=== PATIENT | female | born 1990 | race Caucasian/White ===

== ENCOUNTER → 2021-04-30 18:52 | Observation (INO) ==
[2021-04-30 18:14] LABS: Bilirubin,Urine Negative (Negative); Blood,Urine Negative (Negative); Calcium Oxalate Crystals,Urine Present per hpf; Clarity,Urine Turbid (Clear); Color,Urine Yellow (Yellow); Glucose,Urine (UA) Normal (Normal); Ketones,Urine 60 mg/dL (Negative); Leukocyte Esterase,Urine Small (Negative); Mucus,Urine Few per lpf (None-Few); Nitrite,Urine Negative (Negative); Protein,Urine 30 mg/dL (Neg-Trace); Specific Gravity,Urine 1.028 (1.010-1.025); Squamous Epithelial Cell,Urine Moderate per hpf (None-Few); WBC,Urine 0-3 per hpf (0-3)
[2021-04-30 19:30] LABS: Candida DNA DETECTED (Not Detect); Gardnerella DNA Not Detected (Not Detect); Trichomonas DNA Not Detected (Not Detect)
== END | disposition home or self-care (01) ==
LOC: 1NENULAB
PROVIDERS: ADMIT Advanced Practice Midwife; ATTEND Advanced Practice Midwife

== ENCOUNTER → 2021-05-27 20:40 | Observation (INO) ==
[2021-05-27 19:21] LABS: Bacteria,Urine Few per hpf (None-Few); Bilirubin,Urine Negative (Negative); Blood,Urine Negative (Negative); Clarity,Urine Turbid (Clear); Color,Urine Yellow (Yellow); Glucose,Urine (UA) Normal (Normal); Ketones,Urine 40 mg/dL (Negative); Leukocyte Esterase,Urine Moderate (Negative); Mucus,Urine Few per lpf (None-Few); Nitrite,Urine Negative (Negative); Protein,Urine Trace mg/dL (Neg-Trace); RBC,Urine 0-3 per hpf (0-3); Specific Gravity,Urine 1.028 (1.010-1.025); Squamous Epithelial Cell,Urine Few per hpf (None-Few); Urobilinogen,Urine Normal (Normal); WBC,Urine 0-3 per hpf (0-3)
[2021-05-27 20:49] LABS: Candida DNA Not Detected (Not Detect); Gardnerella DNA DETECTED (Not Detect); Trichomonas DNA Not Detected (Not Detect)
== END | disposition home or self-care (01) ==
LOC: 1NENULAB
PROVIDERS: ADMIT Advanced Practice Midwife; ATTEND Advanced Practice Midwife

== ENCOUNTER 2021-06-19 06:33 | Inpatient (IN) ==
[2021-06-19] MEDS ORDERED: Metoclopramide 10 MG/2 ML VIAL IVP PRN (06:44)
[2021-06-19] MEDS ORDERED: Famotidine 20 MG/2 ML VIAL IVP PRN (06:44)
[2021-06-19] MEDS ORDERED: *HR* Nalbuphine 10 MG/ML AMPUL IV PRN (06:44)
[2021-06-19] MEDS ORDERED: Ondansetron 4 MG/2 ML VIAL IVP PRN (06:44)
[2021-06-19] MEDS ORDERED: Azithromycin 500 MG in 0.9 % Sodium Chloride 250 ML IVPB PRN (06:44)
[2021-06-19] MEDS ORDERED: Naloxone 0.4 MG/ML INJ IVP PRN (06:44)
[2021-06-19] MEDS ORDERED: Oxytocin 30 UNIT/503 ML BAG IVC SCH ×2 (06:45→14:15)
[2021-06-19] MEDS ORDERED: D5% in 0.45% NACL 1,000 ML IVC SCH (07:00)
[2021-06-19 07:41] LABS: Influenza A PCR Negative (Negative); Influenza B PCR Negative (Negative); Resp. Syncytial Virus PCR Negative (Negative)
[2021-06-19 07:46] LABS: SARS-CoV-2 by PCR (In House) Negative (Negative)
[2021-06-19 08:33] LABS: Basophils % 0.3 %; Eosinophils # 0.6 K/mcL (0.0-0.6); Eosinophils % 5.1 %; Hematocrit 40.1 % (35.3-44.9); Hemoglobin 13.6 g/dL (11.5-15.4); Immature Granulocytes % 0.6 % (0-4); Lymphocytes # 2.7 K/mcL (0.6-4.6); Lymphocytes % 22.3 %; Mean Corpuscular HGB Conc 33.9 g/dL (31.6-35.5); Mean Corpuscular Hemoglobin 31.7 pg (28.0-33.3); Mean Corpuscular Volume 93.5 fL (83.0-100.0); Mean Platelet Volume 11.2 fL (9.4-12.4); Monocytes # 0.6 K/mcL (0.0-1.3); Monocytes % 5.4 %; Neutrophils # 7.9 K/mcL (1.6-8.9); Platelet Count 328 K/mcL (140-400); Red Blood Count 4.29 M/mcL (3.82-4.97); Red Cell Distribution Width 13.6 % (11.5-14.5); Segmented Neutrophils % 66.3 %
[2021-06-19] MEDS: Ringers Solution, Lactated 1,000 ML IVC SCH ×2 (08:57→21:40)
[2021-06-19] MEDS ORDERED: Metoclopramide 10 MG/2 ML VIAL IVP ONE (09:11)
[2021-06-19] MEDS ORDERED: CeFAZolin Syr 3,000MG/30 ML 3,000 MG/30 ML SYRINGE IVPB ONE ×2 (09:11→14:00)
[2021-06-19] MEDS ORDERED: Famotidine 20 MG/2 ML VIAL IVP ONE ×2 (09:11→14:00)
[2021-06-19] MEDS ORDERED: *HR* Dextrose 50 % in Water (Syg) 50 ML SYRINGE IVP PRN (09:14)
[2021-06-19] MEDS ORDERED: Ringers Solution, Lactated 1,000 ML IVC SCH (09:15)
[2021-06-19 09:59] LABS: Amphetamine Screen,Urine Negative ng/mL (Cutoff=1000); Barbiturate Screen,Urine Negative ng/mL (Cutoff=200); Benzodiazepines Screen,Urine Negative ng/mL (Cutoff=200); Cannabinoid Screen,Urine Negative ng/mL (Cutoff = 50); Cocaine Screen,Urine Negative ng/mL (Cutoff= 300); Opiate Screen,Urine Negative ng/mL (Cutoff=300); Phencyclidine Screen,Urine Negative ng/mL (Cutoff=25)
[2021-06-19] MEDS ORDERED: EPHEDrine 50 MG/ML VIAL IVP PRN (15:27)
[2021-06-19] MEDS ORDERED: Epidural Premix (fent/bupiv) 110 ML EP SCH (15:30)
[2021-06-19] MEDS ORDERED: *HR* FentaNYL (PF) 100 MCG/2 ML VIAL ONE (20:10)
[2021-06-19] MEDS ORDERED: Ropivacaine/PF 0.2% 20 ML VIAL ONE (20:10)
[2021-06-20] MEDS ORDERED: CeFAZolin Syr 3,000MG/30 ML 3,000 MG/30 ML SYRINGE IVPB ONE (02:49)
[2021-06-20] MEDS ORDERED: Metoclopramide 10 MG/2 ML VIAL IVP ONE (02:49)
[2021-06-20] MEDS ORDERED: Azithromycin 500 MG in 0.9 % Sodium Chloride 250 ML IVPB PRN (02:49)
[2021-06-20] MEDS ORDERED: Famotidine 20 MG/2 ML VIAL IVP ONE ×2 (02:49→02:52)
[2021-06-20] MEDS ORDERED: Ringers Solution, Lactated 1,000 ML IVC SCH ×2 (03:00→08:23)
[2021-06-20] MEDS ORDERED: Lidocaine/EPI 1:200k 2% PF 20 ML VIAL ONE (03:02)
[2021-06-20] MEDS ORDERED: Acetaminophen IV 1,000 MG/100 ML BAG IVPB ONE (03:02)
[2021-06-20] MEDS ORDERED: Ketorolac 30 MG/ML VIAL ONE (03:04)
[2021-06-20] MEDS ORDERED: Ondansetron 4 MG/2 ML VIAL ONE (03:05)
[2021-06-20] MEDS ORDERED: *HR* Morphine Sulfate/PF 10 MG/10 ML AMPUL ONE (04:30)
[2021-06-20] MEDS ORDERED: Promethazine 6.25 MG in Water for inj. (sterile) 20 ML IVPB PRN (05:27)
[2021-06-20] MEDS ORDERED: *HR* FentaNYL (PF) 100 MCG/2 ML VIAL IVP PRN (05:27)
[2021-06-20] MEDS ORDERED: *HR* Metformin 500 MG TABLET PO SCH (08:00)
[2021-06-20] MEDS ORDERED: Ondansetron 4 MG/2 ML VIAL IVP PRN (08:23)
[2021-06-20] MEDS ORDERED: Metoclopramide 10 MG/2 ML VIAL IVP PRN (08:23)
[2021-06-20] MEDS ORDERED: Naloxone 0.4 MG/ML INJ IVP PRN (08:23)
[2021-06-20] MEDS ORDERED: Simethicone 80 MG TAB.CHEW PO PRN (08:23)
[2021-06-20] MEDS ORDERED: lamoTRIgine 100 MG TABLET PO SCH ×2 (08:23→21:00)
[2021-06-20] MEDS ORDERED: *HR* Nalbuphine 10 MG/ML AMPUL IV PRN (09:58)
[2021-06-20] MEDS: Acetaminophen 325 MG TABLET PO SCH ×2 (10:29→17:26)
[2021-06-20] MEDS: Ibuprofen 600 MG TABLET PO SCH ×2 (10:29→17:26)
[2021-06-20] MEDS: Prenatal Vit/FA 1 EACH TABLET PO SCH (10:29)
[2021-06-20] MEDS: *HR* OxyCODONE Immed Rel 5 MG TABLET PO PRN (19:07)
[2021-06-20] MEDS: *HR* Enoxaparin 60 MG/0.6 ML SYRINGE SQ SCH (20:44)
[2021-06-20] MEDS: lamoTRIgine 100 MG TABLET PO SCH (20:44)
[2021-06-21] MEDS: Acetaminophen 325 MG TABLET PO SCH ×4 (00:14→22:21)
[2021-06-21] MEDS: Ibuprofen 600 MG TABLET PO SCH ×4 (00:14→22:12)
[2021-06-21 04:27] LABS: Basophils % 0.3 %; Eosinophils # 0.2 K/mcL (0.0-0.6); Eosinophils % 1.9 %; Hematocrit 34.5 % (35.3-44.9); Immature Granulocytes % 0.5 % (0-4); Lymphocytes # 2.1 K/mcL (0.6-4.6); Lymphocytes % 17.5 %; Mean Corpuscular HGB Conc 34.2 g/dL (31.6-35.5); Mean Corpuscular Hemoglobin 32.3 pg (28.0-33.3); Mean Corpuscular Volume 94.5 fL (83.0-100.0); Mean Platelet Volume 10.4 fL (9.4-12.4); Monocytes # 0.6 K/mcL (0.0-1.3); Monocytes % 5.2 %; Platelet Count 249 K/mcL (140-400); Red Blood Count 3.65 M/mcL (3.82-4.97); Red Cell Distribution Width 13.9 % (11.5-14.5); Segmented Neutrophils % 74.6 %
[2021-06-21 04:28] LABS: Hemoglobin 11.8 g/dL (11.5-15.4)
[2021-06-21] MEDS: *HR* Enoxaparin 60 MG/0.6 ML SYRINGE SQ SCH ×2 (07:45→22:13)
[2021-06-21] MEDS: *HR* Metformin 500 MG TABLET PO SCH (07:45)
[2021-06-21] MEDS: Prenatal Vit/FA 1 EACH TABLET PO SCH (07:45)
[2021-06-21] MEDS: *HR* OxyCODONE Immed Rel 5 MG TABLET PO PRN ×2 (10:02→15:23)
[2021-06-21] MEDS: lamoTRIgine 100 MG TABLET PO SCH (22:13)
[2021-06-22] MEDS: *HR* OxyCODONE Immed Rel 5 MG TABLET PO PRN (03:32)
[2021-06-22] MEDS: *HR* Enoxaparin 60 MG/0.6 ML SYRINGE SQ SCH ×2 (07:56→20:04)
[2021-06-22] MEDS: Ibuprofen 600 MG TABLET PO SCH ×2 (07:56→20:03)
[2021-06-22] MEDS: Acetaminophen 325 MG TABLET PO SCH ×2 (07:57→20:03)
[2021-06-22] MEDS: *HR* Metformin 500 MG TABLET PO SCH (07:57)
[2021-06-22] MEDS: Prenatal Vit/FA 1 EACH TABLET PO SCH (07:57)
[2021-06-22] MEDS: lamoTRIgine 100 MG TABLET PO SCH (20:03)
[2021-06-22 20:13] VITALS: PULSE 82
[2021-06-23] MEDS: Acetaminophen 325 MG TABLET PO SCH (04:03)
[2021-06-23] MEDS: Ibuprofen 600 MG TABLET PO SCH (04:03)
[2021-06-23] MEDS: *HR* Enoxaparin 60 MG/0.6 ML SYRINGE SQ SCH (07:54)
[2021-06-23] MEDS: Prenatal Vit/FA 1 EACH TABLET PO SCH (07:55)
[2021-06-23] MEDS: *HR* Metformin 500 MG TABLET PO SCH (07:55)
[2021-06-23 08:06] VITALS: BP 106/66; TEMP 97.9; O2SAT 96
== END 2021-06-23 11:30 | disposition home or self-care (01) | DRG 788 ==
LOC: 1NENULAB 06:39 → 1NENUOBS 06-20 10:21
PROVIDERS: ADMIT Obstetrics & Gynecology; ATTEND Obstetrics & Gynecology